=== PATIENT | female | born 1980 ===

== ENCOUNTER → 2022-04-01 10:03 | Outpatient (BNVA) | payer OTHER, SELFPAY | PROVIDERS: PCP Internal Medicine; Visit Provider Internal Medicine Endocrinology, Diabetes & Metabolism | DX: E10.65 Type 1 diabetes mellitus with hyperglycemia (principal) | CPT/HCPCS: 82947; 83036; 99202 ==

== ENCOUNTER → 2022-07-30 09:30 | Outpatient (BNVA) | payer OTHER, SELFPAY | PROVIDERS: PCP Internal Medicine; Visit Provider Dietitian, Registered | DX: E10.65 Type 1 diabetes mellitus with hyperglycemia (principal) | CPT/HCPCS: 97802 ==

== ENCOUNTER → 2022-10-06 09:22 | Outpatient (BNVA) | payer OTHER, SELFPAY | PROVIDERS: PCP Internal Medicine; Visit Provider Dietitian, Registered | DX: E10.65 Type 1 diabetes mellitus with hyperglycemia (principal) | CPT/HCPCS: 97803 ==

== ENCOUNTER 2023-09-21 09:02 | Outpatient (REF) | payer OTHER, SELFPAY ==
[2023-09-21 10:04] LABS: Anion Gap 14 (12-20); Blood Urea Nitrogen 10 mg/dL (9-16); Calcium 9.3 mg/dL (8.4-10.2); Carbon Dioxide 27 mmol/L (22-29); Chloride 104 mmol/L (96-108); Cholesterol 290 mg/dL (<200); Estimated Glomerular Filt Rate 51; Glucose Fasting 145 mg/dL (60-99); HDL Cholesterol 43 mg/dL (>40); LDL Cholesterol Calculated 209 mg/dL (<100); Potassium 3.8 mmol/L (3.3-5.1); Sodium 141 mmol/L (135-145); Triglycerides 190 mg/dL (<150)
[2023-09-21 10:27] LABS: Creatinine Urine 165.15 mg/dL; Microalbum/Creatinine Ratio Ur 12.7 ug/mg cr (<30)
== END 2023-09-21 09:03 | disposition home or self-care (01) ==
LOC: HO.LAB 09:02
PROVIDERS: PCP Internal Medicine; Visit Provider Internal Medicine Endocrinology, Diabetes & Metabolism
DX: E10.65 Type 1 diabetes mellitus with hyperglycemia (principal); Z79.4 Long term (current) use of insulin
CPT/HCPCS: 36415; 80048; 80061; 82043; 82570; 82947; 83036; 99212

== ENCOUNTER 2023-09-21 09:31 | Outpatient (AMB) | payer OTHER, SELFPAY ==
[2023-09-21 09:34] VITALS: BP 138/86; PULSE 94; BMI 26.1
--- NOTE | 2023-09-21 09:34 | MHC.OFFVIS ---
Vital Signs 09/21/23 09:34 Height 5 ft 1.5 in Weight 140 lb 10.479 oz BMI 26.1 BP 138/86 Blood Pressure Location Lt brachial Position Sitting Pulse 94 Pulse Source Pulse Oximeter Intake Visit Reasons: DM Intake Note: Patient present today to follow up on Type 2 Diabetes Mellitus. Last Diabetic Eye exam: 07/2023 Last Podiatry Visit: Doesn't have one Random Glucose:174 mg/dl HgA1C: DUE Warehouse Clerk Required: No Accompanied by: Sister Allergies Penicillins Adverse Reaction (Mild, Verified 09/21/23 09:41) Itching lisinopril Adverse Reaction (Unknown, Verified 09/21/23 09:41) Cough venlafaxine [From Effexor] Adverse Reaction (Unknown, Verified 09/21/23 09:41) Nausea and Vomiting environmental Allergy (Unknown, Uncoded 09/21/23 09:41) Unknown HPI Comments Details: 43 YO F with is seen in consultation for T1DM at the request of PCP. Was seen yrs ago at [facility] Initially diagnosed with T1DM in 1991 when presented with DKA . Was seen at [facility] previously Was initially started on treatment with insulin . Current regimen: Basaglar 70 units AM and 30 units in PM not taking Humalog 7 units TID aC Glucometer download shows Checks sugars sporadic Avg glucose is 197 . Variability of 80 The patient's blood sugars were in target 44% of the time, above target 58% of the time, and below target 0% of the time . Reports low sugars once every 2 wks . Treats lows with drinks soda . does not Checks sugar after to ensure it is rising. . No Family history of autoimmunity Has eyes checked yearly, saw optho in 07/2023 , no retinopathy. Has neuropathy, Not sees podiatry. Denies nephropathy, on EVELINA/ARB. Has HLD, on statin. . Has history of CAD.Has PPM Had diabetes education when diagnosed ..Not recently Diet/Carb counting: No Has prior episodes of DKA. Denies prior severe episodes of hypoglycemia requiring help or hospitalization. Labs: [facility] Medical History (Updated 04/01/22 @ 10:10 by Reece Ferris MD) Uncontrolled type 1 diabetes mellitus with hyperglycemia, with long-term current use of insulin Surgical History History of permanent cardiac pacemaker placement Hx of section Family History Mother Cognitive dysfunction in mental illness Alcoholism Father Alcoholism Social History Household Members: None Alcohol intake: never Patient Tobacco Use Status: Never used Tobacco Substance Use Type: Marijuana Physical Exam Vital Signs: Last Vital Signs Pulse 94 09/21/23 09:34 BP 138/86 09/21/23 09:34 BMI result Body Mass Index 26.1 Absence of Cushingoid features. Absence of acromegalic features. Neck exam reveals nl size thyroid about 15 gms. No thyroid nodules palpable. No carotid bruits present. Lungs CTA. Heart S1 S2, Reg R/R. No M/R/ G. Skin exam reveals absence of vitiligo or acanthosis nigricans. Abdominal exam reveals Soft NT/ND with NA BS. No organomegaly present. Extrem Other: Visual exam of foot performed. No ulcerations or open lesions. No onchomycosis, no callouses.Pulses 2 + distally. Sensation intact to monofilament exam. Vibratory sensation sensed 10 seconds in right, 10 seconds in left with 128 Hz tuning fork Results Reviewed Results Reviewed: Laboratory Last Values Glucose (Clinic) 174 mg/dL (60-115) H 09/21/23 09:43 Assessment & Plan Assessment & Plan (1) Uncontrolled type 1 diabetes mellitus with hyperglycemia, with long-term current use of insulin: Code(s): E10.65 - Type 1 diabetes mellitus with hyperglycemia Category: Medical Plan: this is a 43-year-old female with history of type 1 diabetes being treated with basal- bolus insulin with poor glycemic control and no known microvascular or macrovascular complications. Plan is to reinitiate Lantus. I will also have her initiate the Nicolasa 3. She will meet with the coverstitch binder. There is insufficient information to make changes in the insulin regimen. A discussion with the patient was had regarding the cut correlation of poor glycemic control development and progression of complications. . I will also check anti-GAD65 antibodies as well as 2 hour postprandial glucose and C-peptide to characterize type of diabetes. We did have an extensive discussion regarding use of pump and sensors as well as carbohydrate count assuming patient has type 1 diabetes Orders: Orders Glutamic acid decarboxylase Ab Today E10.65 - Type 1 diabetes mellitus with hyperglycemia AMB Hemoglobin A1c Today E10.65 - Type 1 diabetes mellitus with hyperglycemia, Z13.9 - Encounter for screening, unspecified Glucose 2 Hour PP Today E10.65 - Type 1 diabetes mellitus with hyperglycemia C Peptide Today E10.65 - Type 1 diabetes mellitus with hyperglycemia Referrals Diabetes Education Referral E10.65 - Type 1 diabetes mellitus with hyperglycemia Medications: New insulin glargine (Lantus Solostar U-100 Insulin) 70 units am, 30 units pm subcutaneously; 45 mL 4RF Coding Level of Care Code Est Pt Level 4 (59842) Diagnoses Uncontrolled type 1 diabetes mellitus with hyperglycemia, with long-term current use of insulin E10.65
[2023-09-21 09:48] LABS: Glucose, Whole Blood 174 mg/dL (60-115)
== END 2023-09-21 10:29 | disposition home or self-care (01) ==
LOC: HO.ENCR 09:31
PROVIDERS: PCP Internal Medicine; Visit Provider Internal Medicine Endocrinology, Diabetes & Metabolism
DX: Z13.9 Encounter for screening, unspecified (principal); E10.65 Type 1 diabetes mellitus with hyperglycemia
CPT/HCPCS: 99214

== ENCOUNTER 2023-10-12 10:34 | Outpatient (AMB) | payer OTHER, SELFPAY ==
--- NOTE | 2023-10-12 11:55 | A.OFFVIS_ITS ---
Intake Intake Visit Reasons: DM Vp [employer]s Required: No Accompanied by: Sister Allergies Penicillins Adverse Reaction (Mild, Verified 09/21/23 09:41) Itching lisinopril Adverse Reaction (Unknown, Verified 09/21/23 09:41) Cough venlafaxine [From Effexor] Adverse Reaction (Unknown, Verified 09/21/23 09:41) Nausea and Vomiting environmental Allergy (Unknown, Uncoded 09/21/23 09:41) Unknown HPI Comprehensive Diabetes Asmnt Most Recent Diabetes Results: Microalb/Creat Ratio 12.7 ug/mg cr (<30) 09/21/23 Cholesterol 290 mg/dL (<200) H 09/21/23 HDL Cholesterol 43 mg/dL (>40) 09/21/23 Triglycerides 190 mg/dL (<150) H 09/21/23 Creatinine 1.15 mg/dL (0.5-1.4) 09/21/23 Blood Urea Nitrogen 10 mg/dL (9-16) 09/21/23 Sodium 141 mmol/L (135-145) 09/21/23 Potassium 3.8 mmol/L (3.3-5.1) 09/21/23 Chloride 104 mmol/L (96-108) 09/21/23 Carbon Dioxide 27 mmol/L (22-29) 09/21/23 Calcium 9.3 mg/dL (8.4-10.2) 09/21/23 [facility] Medical History (Updated 04/01/22 @ 10:10 by Reece Ferris MD) Uncontrolled type 1 diabetes mellitus with hyperglycemia, with long-term current use of insulin Surgical History History of permanent cardiac pacemaker placement Hx of section Family History Mother Cognitive dysfunction in mental illness Alcoholism Father Alcoholism Social History Household Members: None Alcohol intake: never Patient Tobacco Use Status: Never used Tobacco Substance Use Type: Marijuana Assessment & Plan Assessment & Plan (1) Uncontrolled type 1 diabetes mellitus with hyperglycemia, with long-term current use of insulin: Code(s): E10.65 - Type 1 diabetes mellitus with hyperglycemia Plan: Learning objectives: The patient was provided with verbal and written education on the following topics as outlined below. The patient met all learning objectives and was able to verbalize understanding and provide teach back of education topics discussed . The patient was provided with the opportunity to ask questions and all questions were answered. Patient Assessment Assess patient education level/literacy/barriers Patient questions/concerns, patient was diagnosed with type 1 diabetes in 1991 at the age of 11 after being admitted to hospital for DKA. Patient is currently taking Lantus 60 units Humalog sliding scale 7-10 units What is Diabetes? Pathophysiology How the body produces and uses insulin Identify type of DM Risk factors Signs of Diabetes Brief overview of Diabetes Management Monitoring blood sugar Following a meal plan Regular exercise Maintaining a healthy weight Taking medication as needed Members of the care team (PCP, RN, MA, RD, CDE, supervisor dumping) Blood glucose monitoring When/how often to test Target blood sugar ranges Educational Materials: The patient was provided with the following written educational materials: Planning Healthy Meals Handout Smart Goal: Patient will identify current foods that she is eating that contain carbohydrates by next visit Patient Response to instructions: Comprehension of Instructions: Fair Readiness to make changes: Contemplation How confident they feel about making changes: fair Pump Assessment: Type of DM: type 1 Dx at age: 11 y/o Previous DKA: yes Current Insulin Rx: MDI Patient takes insulin as prescribed: yes Patient? checks BG with Nicolasa 3 Downloaded meter today? Patient did not have active sensor at visit Patient? reports glycemic control as: poor Most recent Hgb A1C: 9.6% 09/21/2023 Frequency of low BG: Rarely Low BG treatment:candy Frequency of high BG: daily Does patient check Ketones? no Has pt been on a pump in the past? no Reviewed insulin pump basics today with Patient. Explained pros and cons of insulin pumps. Showed pt various pumps, infusion sets, and cgms currently available. Reviewed need to wear pump 24/7 and need to change infusion set every 3 days. Also stressed importance of frequent BG checks, 4x daily minimum or use pump that is integrated with CGM.? TDD:90 units Patient demonstrated motivation for continued insulin pump education and understands the need to complete education prior to starting insulin pump for best outcome. Will follow up for continued education. Next visit will include review of Advanced Carb Counting, if patient chooses a pump that requires carb counting Portions of this note were created using voice recognition software, please excuse any words or phrases that may have been misinterpreted. Patient Instructions: Identify foods which were eating that contain carbohydrate Follow-up with Diabetes Education nurse in 2 weeks Coding Level of Care Code Est Pt Level 1 (69579) Diagnoses Uncontrolled type 1 diabetes mellitus with hyperglycemia, with long-term current use of insulin E10.65
== END 2023-10-12 12:01 | disposition home or self-care (01) ==
PROVIDERS: PCP Internal Medicine; Visit Provider Registered Nurse Diabetes Educator
DX: E10.65 Type 1 diabetes mellitus with hyperglycemia (principal)

== ENCOUNTER → 2023-10-12 10:34 | Outpatient (BNVA) | payer OTHER, SELFPAY | PROVIDERS: PCP Internal Medicine; Visit Provider Registered Nurse Diabetes Educator | DX: E10.65 Type 1 diabetes mellitus with hyperglycemia (principal); Z79.4 Long term (current) use of insulin | CPT/HCPCS: 99211 ==

== ENCOUNTER 2023-11-23 08:24 | Outpatient (AMB) | payer OTHER, SELFPAY ==
--- NOTE | 2023-11-23 08:39 | MHC.AMDMED ---
Intake Intake Visit Reasons: Concerned about DM/CONFIRMED Charcoal [employer] Required: No Accompanied by: Sister Allergies Penicillins Adverse Reaction (Mild, Verified 09/21/23 09:41) Itching lisinopril Adverse Reaction (Unknown, Verified 09/21/23 09:41) Cough venlafaxine [From Effexor] Adverse Reaction (Unknown, Verified 09/21/23 09:41) Nausea and Vomiting environmental Allergy (Unknown, Uncoded 09/21/23 09:41) Unknown HPI Comprehensive Diabetes Asmnt Most Recent Diabetes Results: Microalb/Creat Ratio 12.7 ug/mg cr (<30) 09/21/23 Cholesterol 290 mg/dL (<200) H 09/21/23 HDL Cholesterol 43 mg/dL (>40) 09/21/23 Triglycerides 190 mg/dL (<150) H 09/21/23 Creatinine 1.15 mg/dL (0.5-1.4) 09/21/23 Blood Urea Nitrogen 10 mg/dL (9-16) 09/21/23 Sodium 141 mmol/L (135-145) 09/21/23 Potassium 3.8 mmol/L (3.3-5.1) 09/21/23 Chloride 104 mmol/L (96-108) 09/21/23 Carbon Dioxide 27 mmol/L (22-29) 09/21/23 Calcium 9.3 mg/dL (8.4-10.2) 09/21/23 [facility] Medical History (Updated 04/01/22 @ 10:10 by Reece Ferris MD) Uncontrolled type 1 diabetes mellitus with hyperglycemia, with long-term current use of insulin Surgical History History of permanent cardiac pacemaker placement Hx of section Family History Mother Cognitive dysfunction in mental illness Alcoholism Father Alcoholism Social History Household Members: None Alcohol intake: never Patient Tobacco Use Status: Never used Tobacco Substance Use Type: Marijuana Assessment & Plan Assessment & Plan (1) Uncontrolled type 1 diabetes mellitus with hyperglycemia, with long-term current use of insulin: Code(s): E10.65 - Type 1 diabetes mellitus with hyperglycemia Plan: Pt did not bring meter to the appt Reported she is taking basaglar and Lantus does not have current prescription for Humalog will send message to Dr. Ferris to fill humalog script Explained to patient that Basaglar and Lantus are both long-acting insulins and should not be taken together Patient stated these are the only insulin she has because her Humalog is Patient did not have C-peptide or antibody labs drawn, became very agitated during conversation abruptly left Education visit Coding Level of Care Code Est Pt Level 1 (73086) Diagnoses Uncontrolled type 1 diabetes mellitus with hyperglycemia, with long-term current use of insulin E10.65
== END 2023-11-23 09:03 | disposition home or self-care (01) ==
PROVIDERS: PCP Internal Medicine; Visit Provider Registered Nurse Diabetes Educator
DX: E10.65 Type 1 diabetes mellitus with hyperglycemia (principal)

== ENCOUNTER → 2023-11-23 08:24 | Outpatient (BNVA) | payer OTHER, SELFPAY | PROVIDERS: PCP Internal Medicine; Visit Provider Registered Nurse Diabetes Educator | DX: E10.65 Type 1 diabetes mellitus with hyperglycemia (principal) | CPT/HCPCS: 99211 ==

== ENCOUNTER 2023-12-29 08:21 | Outpatient (AMB) | payer OTHER, SELFPAY ==
--- NOTE | 2023-12-29 09:04 | A.OFFVIS_ITS ---
Intake Intake Visit Reasons: Concerned about DM Allergies Penicillins Adverse Reaction (Mild, Verified 09/21/23 09:41) Itching lisinopril Adverse Reaction (Unknown, Verified 09/21/23 09:41) Cough venlafaxine [From Effexor] Adverse Reaction (Unknown, Verified 09/21/23 09:41) Nausea and Vomiting environmental Allergy (Unknown, Uncoded 09/21/23 09:41) Unknown HPI Comprehensive Diabetes Asmnt Most Recent Diabetes Results: Microalb/Creat Ratio 12.7 ug/mg cr (<30) 09/21/23 Cholesterol 290 mg/dL (<200) H 09/21/23 HDL Cholesterol 43 mg/dL (>40) 09/21/23 Triglycerides 190 mg/dL (<150) H 09/21/23 Creatinine 1.15 mg/dL (0.5-1.4) 09/21/23 Blood Urea Nitrogen 10 mg/dL (9-16) 09/21/23 Sodium 141 mmol/L (135-145) 09/21/23 Potassium 3.8 mmol/L (3.3-5.1) 09/21/23 Chloride 104 mmol/L (96-108) 09/21/23 Carbon Dioxide 27 mmol/L (22-29) 09/21/23 Calcium 9.3 mg/dL (8.4-10.2) 09/21/23 [facility] Medical History (Updated 04/01/22 @ 10:10 by Reece Ferris MD) Uncontrolled type 1 diabetes mellitus with hyperglycemia, with long-term current use of insulin Surgical History History of permanent cardiac pacemaker placement Hx of section Family History Mother Cognitive dysfunction in mental illness Alcoholism Father Alcoholism Social History Household Members: None Alcohol intake: never Patient Tobacco Use Status: Never used Tobacco Substance Use Type: Marijuana Assessment & Plan Assessment & Plan (1) Uncontrolled type 1 diabetes mellitus with hyperglycemia, with long-term current use of insulin: Code(s): E10.65 - Type 1 diabetes mellitus with hyperglycemia Plan: Pump Assessment: Type of DM: Type 1 Dx at age: 10 y/o Previous DKA: Yes Current Insulin Rx:MDI Patient takes insulin as prescribed: Yes Patient? checks BG Nicolasa 3 Downloaded meter today yes Patient? reports glycemic control as: fair Most recent Hgb A1C: 9.6% September 2023 Frequency of low BG: rarely Low BG treatment: Fruit juice, chewy candy Frequency of high BG: Daily Does patient check Ketones? no Has pt been on a pump in the past? no Reviewed insulin pump basics today with Patient. Explained pros and cons of insulin pumps. Showed pt various pumps, infusion sets, and cgms currently available. Reviewed need to wear pump 24/7 and need to change infusion set every 3 days. Also stressed importance of frequent BG checks, 4x daily minimum or use pump that is integrated with CGM.? TDD:70 units Pt is interested in iLet Patient demonstrated motivation for continued insulin pump education and understands the need to complete education prior to starting insulin pump for best outcome. Portions of this note were created using voice recognition software, please excuse any words or phrases that may have been misinterpreted. Patient Instructions: DIABETES PROBLEMS HOMECARE INSTRUCTIONS? for High Blood Sugar and When to Test for Ketones Hyperglycemia is the technical term for high blood glucose (blood sugar). High blood sugar happens when the body has too little insulin or when the body can't use insulin properly. What causes hyperglycemia? A number of things can cause hyperglycemia: * If you have type 1, you may not have given yourself enough insulin. ? If you have type 2, your body may have enough insulin, but it is not as effective as it should be. * You ate more than planned or exercised less than planned. * You have stress from an illness, such as a cold or flu. * You have other stress, such as family conflicts or school or dating problems. How to lower your blood sugar level. ? Take medications as directed by physician. ? Drink extra water or noncaffeinated, nonsugared drinks to prevented hydration. ? Exercise if you are not sick However, if your blood sugar is above 250 mg/dl, check your urine for ketones. If you have ketones, do not exercise Exercising when ketones are present may make your blood sugar level go even higher. You'll need to work with your doctor to find the safest way for you to lower your blood sugar level. Regularly check blood sugar or urine for sugar and acetone during illness. Diabetic ketoacidosis (DKA) Is serious condition that can lead to diabetic coma (passing out for a long time) or even . When your cells don't get the glucose they need for energy, your body begins to burn fat for energy, which produces ketones. Ketones are chemicals that the body creates when it breaks down fat to use for energy. The body does this when it doesn?t have enough insulin to use glucose, the body?s normal source of energy. When ketones build up in the blood, they make it more acidic. They are a warning sign that your diabetes is out of control or that you are getting sick. Symptoms of Diabetic Ketoacidosis (DKA) ? DKA usually develops slowly. But when vomiting occurs, this life- threatening condition can develop in a few hours. Early symptoms include the following: ? Thirst or a very dry mouth ? Frequent urination ? High blood glucose (blood sugar) levels ? High levels of ketones in the urine ? Then, other symptoms appear: ? Constantly feeling tired ? Dry or flushed skin ? Nausea, vomiting, or abdominal pain ? (Vomiting can be caused by many illnesses, not just ketoacidosis. If vomiting continues for more than 2 hours, contact your health care provider.) ? Difficulty breathing ? Fruity odor on breath ? A hard time paying attention, or confusion When should you test for ketones? It is advisable to check for ketones under the following conditions when: Your blood glucose is higher than 250mg/dl. Feeling nauseated, throwing up, or have pains in your abdominal region. Have a cold or flu. Have general body fatigue. Feel thirsty or have a very dry mouth. Have flushed skin. Have a fruity breath or a hard time breathing. You feel perplexed or in fog. How to Test Urine for Ketones You can detect ketones with a simple urine test using a test strip, similar to a blood testing strip. Ask your health care provider when and how you should test for ketones. Many experts advise to check your urine for ketones when your blood glucose is more than 250 mg/dl. When you are ill (when you have a cold or the flu, for example), check for ketones every 4 to 6 hours. And check every 4 to 6 hours when your blood sugar is more than 250 mg/dl. Also, check for ketones when you have any symptoms of DKA. How to lower your blood sugar level. ? Take medications as directed by physician. ? Drink extra water or noncaffeinated, nonsugared drinks to prevented hydration. ? Exercise if you are not sick However, if your blood sugar is above 250 mg/dl, check your urine for ketones. If you have ketones, do not exercise Exercising when ketones are present may make your blood sugar level go even higher. You'll need to work with your doctor to find the safest way for you to lower your blood sugar level. Regularly check blood sugar or urine for sugar and acetone during illness Coding Level of Care Code Est Pt Level 1 (51790) Diagnoses Uncontrolled type 1 diabetes mellitus with hyperglycemia, with long-term current use of insulin E10.65
== END 2023-12-29 09:22 | disposition home or self-care (01) ==
PROVIDERS: PCP Internal Medicine; Visit Provider Registered Nurse Diabetes Educator
DX: E10.65 Type 1 diabetes mellitus with hyperglycemia (principal)

== ENCOUNTER → 2023-12-29 08:21 | Outpatient (BNVA) | payer OTHER, SELFPAY | PROVIDERS: PCP Internal Medicine; Visit Provider Registered Nurse Diabetes Educator | DX: E10.65 Type 1 diabetes mellitus with hyperglycemia (principal); Z79.4 Long term (current) use of insulin; Z71.89 Other specified counseling | CPT/HCPCS: 99211 ==

== ENCOUNTER 2024-02-23 09:44 | Outpatient (AMB) | payer OTHER, SELFPAY ==
--- NOTE | 2024-02-23 07:56 | A.OFFVIS_ITS ---
Vital Signs 02/23/24 10:04 Height 5 ft 1.5 in Weight 134 lb 14.766 oz BMI 25.1 BP 106/82 Blood Pressure Location Lt brachial Position Sitting Pulse 71 Pulse Source Pulse Oximeter Intake Visit Reasons: DM/CONFIRMED Intake Note: Patient present today to follow up on Type 2 Diabetes Mellitus. Last Diabetic Eye exam: July 2023 Last Podiatry Visit: Does not see a Health Consultant, patient stated PCP sent a referral. Random Glucose: 206 mg/dl HgA1C: 8.4% 02/23/24 Broommaker Required: No Accompanied by: Self / Same As Patient Allergies Penicillins Adverse Reaction (Mild, Verified 02/23/24 10:01) Itching lisinopril Adverse Reaction (Unknown, Verified 02/23/24 10:01) Cough venlafaxine [From Effexor] Adverse Reaction (Unknown, Verified 02/23/24 10:01) Nausea and Vomiting environmental Allergy (Unknown, Uncoded 02/23/24 10:01) Unknown Medication List - Last Reconciled 02/23/24 by Shelby Palumbo NP acetone (urine) test (Ketostix strips) As directed albuterol sulfate 90 mcg/actuation (ProAir HFA) 2 puffs inhalation Q4H PRN aripiprazole 10 mg PO DAILY aspirin 81 mg PO DAILY atorvastatin 80 mg PO DAILY blood sugar diagnostic (FreeStyle Lite Strips) As directed blood-glucose meter (FreeStyle Lite Meter kit) CHECK BLOOD GLUCOSE 4 TIMES PER DAY blood-glucose meter,continuous (Dexcom G7 Spaghetti Machine Operator) As directed blood-glucose sensor (Dexcom G7 Sensor device) As directed docusate sodium 100 mg PO BID PRN ezetimibe (Zetia) 10 mg PO DAILY glucose grams PO DIRECTED insulin glargine (Lantus Solostar U-100 Insulin) 70 units am, 30 units pm subcutaneously; insulin lispro (Humalog U-100 Insulin) Infuse up to 90 units via insulin pump per day subcutaneously 3 times a day; insulin lispro Inject 5-7 units subcutaneously 3 times a day; loratadine 10 mg PO DAILY losartan 50 mg PO DAILY metoprolol succinate ER 25 mg PO DAILY omeprazole 20 mg PO BID pen needle, diabetic (BD Ultra-Fine Catherine Pen Needle) As directed trazodone 25 - 50 mg PO BEDTIME PRN HPI Comments Details: 43 YO F is seen in f/u for T1DM. She was last seen by Dr. Ferris 09/21/2023 at which time basal insulin was re-initiated as it had been stopped by the patient's and by Livier STERLING 12/29/23 to initiate islet pump training. She is scheduled for a 2 hour training in several weeks. She did miss her follow up appointment with Livier STERLING. Initially diagnosed with T1DM in 1991 when presented with DKA . Was seen at [facility] previously Was initially started on treatment with insulin. Current regimen: Basaglar 60 units PM Humalog 3- 10 units TID AC Dexcom average glucose: 157 14 day continuous glucose monitor report reviewed Glucose Managment indicator 7.1 % TIme in ranges: Eight % very high (above 250) 25 % high ?(181-250) 64 % in range ?(70-180] 2 % low (69-55) 1 % ?very low (below 54) Interpretation [readings in better control ] Sugars can drop quickly after post prandial insulin. Treats lows with drinks soda . does not Checks sugar after to ensure it is rising. . No Family history of autoimmunity Has eyes checked yearly, saw optho in 07/2023 , no retinopathy. Has neuropathy, Not sees podiatry. Denies nephropathy, on EVELINA/ARB. Has HLD, on statin. . Has history of CAD.Has PPM Had diabetes education when diagnosed ..Not recently Diet/Carb counting: No Has prior episodes of DKA. Denies prior severe episodes of hypoglycemia requiring help or hospitalization. [facility] Medical History (Updated 04/01/22 @ 10:10 by Reece Ferris MD) Uncontrolled type 1 diabetes mellitus with hyperglycemia, with long-term current use of insulin Surgical History History of permanent cardiac pacemaker placement Hx of section Family History Mother Cognitive dysfunction in mental illness Alcoholism Father Alcoholism Social History Household Members: None Alcohol intake: never Patient Tobacco Use Status: Never used Tobacco Substance Use Type: Marijuana Physical Exam Vital Signs: Last Vital Signs Pulse 71 10/23/24 10:04 BP 106/82 02/23/24 10:04 BMI result Body Mass Index 25.1 Const Other: Absence of Cushingoid features. Absence of acromegalic features. Neck exam reveals nl size thyroid about 15 gms. No thyroid nodules palpable. No carotid bruits present. Heart S1 S2, Reg R/R. No M/R G. Skin exam reveals absence of vitiligo or acanthosis nigricans. No edema Visual exam of foot performed. No ulcerations or open lesions. No inter digit maceration or fissuring. No onychomycosis, no callouses. Sensation intact to monofilament exam. Vibratory sensation is normal with 128 Hz tuning fork. Results AMB Hemoglobin A1c AMB Hemoglobin A1c 8.4 % Last Edit by CARLOS Jenkins on 02/23/24 10:27 Results Reviewed Results Reviewed: Laboratory Last Values Glucose (Clinic) 206 mg/dL (60-115) H 02/23/24 10:12 Hgb A1c (Clinic) 8.4 % (4.0-6.0) H 02/23/24 10:17 Assessment & Plan Assessment & Plan (1) Uncontrolled type 1 diabetes mellitus with hyperglycemia, with long-term current use of insulin: Code(s): E10.65 - Type 1 diabetes mellitus with hyperglycemia Category: Medical Plan: Type 1 diabetic with improving glycemic control was preparing to go on an islet insulin pump. She is currently on a Dexcom sensor. Today we discussed rule of 15 in the absolute need to have a functioning glucometer test strips and lancets because of her pump is not pared with a sensor he will not operate without manually entering in glucose readings. She was counseled that it is her responsibility to always make sure she has a functioning sensor with her pump. We did not discuss DKA prevention and treatment today. Has patient reports her blood sugars can drop postprandial, it would be best to set higher insulin target in the islet pump when she starts. Orders: Orders AMB Hemoglobin A1c Today E10.65 - Type 1 diabetes mellitus with hyperglycemia Medications: New glucose (Dex4 Glucose) every 15 minutes until symptoms of low blood sugar are controlled 16 grams (4 x 4 gram) PO Q15M 30 days PRN 30 tabs 3RF hypoglycemia MDD 16 tablets Refilled acetone (urine) test (Ketostix strips) As directed 100 ea 5RF Patient Instructions: The patient was counseled to always carry a source of sugar and on the rule of 15's: Take 3 glucose tablets and repeat again in 15 minutes if blood sugar is not in normal range. Continue to repeat every 15 minutes until blood sugar is normal. Coding Level of Care Code Est Pt Level 5 (33469) Complex EM visit Add On G2211 Diagnoses Uncontrolled type 1 diabetes mellitus with hyperglycemia, with long-term current use of insulin E10.65 Time Spent (min) 45 Comment Time spent reviewing labs/provider notes, face to face, chart doc
[2024-02-23 10:04] VITALS: BP 106/82; PULSE 71; BMI 25.1
[2024-02-23 10:18] LABS: Glucose, Whole Blood 206 mg/dL (60-115)
== END 2024-02-23 10:48 | disposition home or self-care (01) ==
PROVIDERS: PCP Internal Medicine; Visit Provider Nurse Practitioner Adult Health
DX: E10.65 Type 1 diabetes mellitus with hyperglycemia (principal)
CPT/HCPCS: 99215; G2211

== ENCOUNTER → 2024-02-23 09:44 | Outpatient (BNVA) | payer OTHER, SELFPAY | PROVIDERS: PCP Internal Medicine; Visit Provider Nurse Practitioner Adult Health | DX: E10.65 Type 1 diabetes mellitus with hyperglycemia (principal); Z79.4 Long term (current) use of insulin | CPT/HCPCS: 82947; 83036; 99212 ==

== ENCOUNTER 2024-04-05 08:17 | Outpatient (AMB) | payer OTHER, SELFPAY ==
--- NOTE | 2024-04-05 08:48 | A.OFFVIS_ITS ---
Intake Intake Visit Reasons: Pump training-confirmed Professional Nursing Assistant Required: No Allergies Penicillins Adverse Reaction (Mild, Verified 02/23/24 10:01) Itching lisinopril Adverse Reaction (Unknown, Verified 02/23/24 10:01) Cough venlafaxine [From Effexor] Adverse Reaction (Unknown, Verified 02/23/24 10:01) Nausea and Vomiting environmental Allergy (Unknown, Uncoded 02/23/24 10:01) Unknown HPI Comprehensive Diabetes Asmnt Most Recent Diabetes Results: Microalb/Creat Ratio 12.7 ug/mg cr (<30) 09/21/23 Cholesterol 290 mg/dL (<200) H 09/21/23 HDL Cholesterol 43 mg/dL (>40) 09/21/23 Triglycerides 190 mg/dL (<150) H 09/21/23 Creatinine 1.15 mg/dL (0.5-1.4) 09/21/23 Blood Urea Nitrogen 10 mg/dL (9-16) 09/21/23 Sodium 141 mmol/L (135-145) 09/21/23 Potassium 3.8 mmol/L (3.3-5.1) 09/21/23 Chloride 104 mmol/L (96-108) 09/21/23 Carbon Dioxide 27 mmol/L (22-29) 09/21/23 Calcium 9.3 mg/dL (8.4-10.2) 09/21/23 [facility] Medical History (Updated 04/01/22 @ 10:10 by Reece Ferris MD) Uncontrolled type 1 diabetes mellitus with hyperglycemia, with long-term current use of insulin Surgical History History of permanent cardiac pacemaker placement Hx of section Family History Mother Cognitive dysfunction in mental illness Alcoholism Father Alcoholism Social History Household Members: None Alcohol intake: never Patient Tobacco Use Status: Never used Tobacco Substance Use Type: Marijuana Assessment & Plan Assessment & Plan (1) Uncontrolled type 1 diabetes mellitus with hyperglycemia, with long-term current use of insulin: Code(s): E10.65 - Type 1 diabetes mellitus with hyperglycemia Plan: Patient presents for pump training for iLet pump and CGM training today. The following topics were reviewed today: -Pump therapy basic concepts: Basal/bolus -Device settings: Bluetooth/mobile connection (if applicable), correct date and time, sound volume -CGM settings(if integrated system): CGM graft views and trend arrows, alerts and alarms, Start new sensor Patient did not bring pump or insulin to today's visit Downloaded iLet maura on patient's cellphone Patient is interested in using freestyle Nicolasa 3 sensors which are now compatible with insulin pump Message will be sent to COMPUTER TECHNICAL SUPPORT SPECIALIST to send prescription for Nicolasa 3 sensor Patient will set up insulin pump training appointment, she will bring insulin and insulin pump with cellphone to next insulin pump training appointment Portions of this note were created using voice recognition software, please excuse any words or phrases that may have been misinterpreted. Coding Level of Care Code Est Pt Level 1 (69151) Diagnoses Uncontrolled type 1 diabetes mellitus with hyperglycemia, with long-term current use of insulin E10.65
== END 2024-04-05 08:52 | disposition home or self-care (01) ==
PROVIDERS: PCP Internal Medicine; Visit Provider Registered Nurse Diabetes Educator
DX: E10.65 Type 1 diabetes mellitus with hyperglycemia (principal)

== ENCOUNTER → 2024-04-05 08:17 | Outpatient (BNVA) | payer OTHER, SELFPAY | PROVIDERS: PCP Internal Medicine; Visit Provider Registered Nurse Diabetes Educator | DX: E10.65 Type 1 diabetes mellitus with hyperglycemia (principal); Z79.4 Long term (current) use of insulin | CPT/HCPCS: 99211 ==

== ENCOUNTER 2025-01-23 11:19 | Outpatient (AMB) | payer OTHER, SELFPAY ==
--- NOTE | 2025-01-23 11:27 | A.OFFVIS_ITS ---
Vital Signs 01/23/25 11:28 BMI Reason not done Patient refused/unable BP not taken reason Patient Refused Intake Visit Reasons: T1DM Intake Note: Patient present today for Type 2 Diabetes Mellitus: Patient is agitated and unable to review clinical information Last Diabetic eye exam: unk Last Podiatry Visit: unk Random Glucose: 188 mg/dL HgA1C: 7.2%, 01/23/2025 Bench Assembler Battery Required: No Accompanied by: Self / Same As Patient Allergies Penicillins Adverse Reaction (Mild, Verified 02/23/24 10:01) Itching lisinopril Adverse Reaction (Unknown, Verified 02/23/24 10:01) Cough venlafaxine (From Effexor) Adverse Reaction (Unknown, Verified 02/23/24 10:01) Nausea and Vomiting environmental Allergy (Unknown, Uncoded 02/23/24 10:01) Unknown Medication List - Last Reconciled 01/23/25 by Reece Ferris MD acetone (urine) test (Ketostix strips) As directed albuterol sulfate 90 mcg/actuation (ProAir HFA) 2 puffs inhalation Q4H PRN aripiprazole 10 mg PO DAILY aspirin 81 mg PO DAILY atorvastatin 80 mg PO DAILY blood sugar diagnostic (FreeStyle Lite Strips) As directed blood-glucose meter (FreeStyle Lite Meter kit) CHECK BLOOD GLUCOSE 4 TIMES PER DAY blood-glucose sensor (FreeStyle Nicolasa 3 Plus Sensor device) As directed every 15 days blood-glucose sensor (Dexcom G7 Sensor device) Use as directed change every 10 days blood-glucose,receiving manager,cont (Dexcom G7 Ballistic Technician) As directed docusate sodium 100 mg PO BID PRN ezetimibe (Zetia) 10 mg PO DAILY glucose grams PO DIRECTED glucose (Dex4 Glucose) 16 grams (4 x 4 gram) PO Q15M PRN 30 days MDD 16 tablets insulin glargine (Lantus Solostar U-100 Insulin) 60 units (0.6 mL) subcut DAILY 90 days insulin lispro (Humalog U-100 Insulin) Infuse up to 90 units via insulin pump per day subcutaneously 3 times a day; insulin lispro Inject 5-7 units subcutaneously 3 times a day; loratadine 10 mg PO DAILY losartan 50 mg PO DAILY metoprolol succinate ER 25 mg PO DAILY omeprazole 20 mg PO BID pen needle, diabetic (BD Ultra-Fine Catherine Pen Needle) As directed trazodone 25 - 50 mg PO BEDTIME PRN HPI Comments Details: 44 YO F is seen in f/u for T1DM. She was last seen by Shelby Cook NP 02/23/2024 Initially diagnosed with T1DM in 1991 when presented with DKA . Was seen at [facility] previously Was initially started on treatment with insulin. Current regimen: Basaglar 60 units PM Humalog 3- 10 units TID AC Dexcom average glucose: 144 14 day continuous glucose monitor report reviewed Glucose Managment indicator 6.8 % TIme in ranges: Eight % very high (above 250) 15 % high ?(181-250) 85 % in range ?(70-180] 0 % low (69-55) 0 % ?very low (below 54) No hypoglycemia Interpretation [readings in better control ] Sugars can drop quickly after post prandial insulin. Treats lows with drinks soda . does not Checks sugar after to ensure it is rising. . No Family history of autoimmunity Has eyes checked yearly, saw optho in 10/2024 , no retinopathy. Has neuropathy, Not sees podiatry. Denies nephropathy, on EVELINA/ARB. Has HLD, on statin. . Has history of CAD.Has PPM Had diabetes education when diagnosed .. Diet/Carb counting: No Has prior episodes of DKA. Denies prior severe episodes of hypoglycemia requiring help or hospitalization. [facility] Medical History (Updated 01/23/25 @ 12:18 by Reece Ferris MD) Hyperlipidemia Uncontrolled type 1 diabetes mellitus with hyperglycemia, with long-term current use of insulin Surgical History History of permanent cardiac pacemaker placement Hx of section Family History Mother Cognitive dysfunction in mental illness Alcoholism Father Alcoholism Social History Household Members: None Alcohol intake: never Patient Tobacco Use Status: Never used Tobacco Substance Use Type: Marijuana Physical Exam Vital Signs: BMI result Body Mass Index 23.2 Const Other: Absence of Cushingoid features. Absence of acromegalic features. Neck exam reveals nl size thyroid about 15 gms. No thyroid nodules palpable. No carotid bruits present. Heart S1 S2, Reg R/R. No M/R G. Skin exam reveals absence of vitiligo or acanthosis nigricans. No edema Visual exam of foot performed. No ulcerations or open lesions. There was a callus on the right heel followed by wound clinic No inter digit maceration or fissuring. No onychomycosis, no callouses. Sensation intact to monofilament exam. Vibratory sensation is normal with 128 Hz tuning fork. Results AMB Hemoglobin A1c AMB Hemoglobin A1c 7.2 % Last Edit by CARLOS Haynes on 01/23/25 11:58 Results Reviewed Results Reviewed: Laboratory Last Values Glucose (Clinic) 188 mg/dL (60-115) H 01/23/25 11:46 Hgb A1c (Clinic) 7.2 % (4.0-6.0) H 01/23/25 11:57 Assessment & Plan Assessment & Plan (1) Uncontrolled type 1 diabetes mellitus with hyperglycemia, with long-term current use of insulin: Code(s): E10.65 - Type 1 diabetes mellitus with hyperglycemia Category: Medical Plan: this is a 43-year-old female with history of type 1 diabetes being treated with basal- bolus insulin with excellent glycemic control and no known microvascular or macrovascular complications. Plan is to continue the current management. The patient is going to meet with the staff development educator to discuss possible initiation of the iLet pump. We will have patient follow up with wound care regarding the right lower extremity wound (2) Hyperlipidemia: Code(s): E78.5 - Hyperlipidemia, unspecified Category: Medical Plan: LDL cholesterol greater than 200 with a history of several MIs suggest the presence of familial hypercholesterolemia heterozygote. The patient has not been consistent with the atorvastatin and Zetia Plan is to have the patient take the atorvastatin and Zetia on a regular basis and recheck lipid profile in 6 weeks. If LDL is not at goal at less than 50, could consider adding a PCSK9 inhibitor like Repatha Orders: Orders Lipid Panel 6 Weeks E10.65 - Type 1 diabetes mellitus with hyperglycemia AMB Hemoglobin A1c Today E10.65 - Type 1 diabetes mellitus with hyperglycemia Medications: Refilled ezetimibe (Zetia) 10 mg PO DAILY 30 tabs 0RF Coding Level of Care Code Est Pt Level 4 (53973) Complex EM visit Add On G2211 Diagnoses Uncontrolled type 1 diabetes mellitus with hyperglycemia, with long-term current use of insulin E10.65 Hyperlipidemia E78.5
[2025-01-23 11:50] LABS: Glucose, Whole Blood 188 mg/dL (60-115)
== END 2025-01-23 12:21 | disposition home or self-care (01) ==
LOC: HO.ENCR 11:20
PROVIDERS: PCP Internal Medicine; Visit Provider Internal Medicine Endocrinology, Diabetes & Metabolism
DX: E10.65 Type 1 diabetes mellitus with hyperglycemia (principal); E78.5 Hyperlipidemia, unspecified
CPT/HCPCS: 99214; G2211

== ENCOUNTER → 2025-01-23 11:19 | Outpatient (BNVA) | payer OTHER, SELFPAY | PROVIDERS: PCP Internal Medicine; Visit Provider Internal Medicine Endocrinology, Diabetes & Metabolism | DX: E10.65 Type 1 diabetes mellitus with hyperglycemia (principal); E78.5 Hyperlipidemia, unspecified; Z79.4 Long term (current) use of insulin | CPT/HCPCS: 82947; 83036; 99212 ==